=== PATIENT | male | born 1955 | race Two or more races ===

== ENCOUNTER → 2020-11-13 | Outpatient (CLI) | payer MEDICARE | END | disposition home or self-care (01) | LOC: LAB 07:58 → LAB SHORT 07:58 | DX: D04.5 Carcinoma in situ of skin of trunk (principal); D04.39 Carcinoma in situ of skin of other parts of face; L81.4 Other melanin hyperpigmentation | CPT/HCPCS: 88305 ==

== ENCOUNTER → 2021-05-14 | Outpatient (CLI) | payer MEDICARE | END | disposition home or self-care (01) | LOC: LAB 14:40 → LAB SHORT 14:40 | DX: C44.519 Basal cell carcinoma of skin of other part of trunk (principal) | CPT/HCPCS: 88305 ==

== ENCOUNTER → 2022-05-14 | Outpatient (CLI) | payer MEDICARE | END | disposition home or self-care (01) | LOC: PLD 12:22 → LAB SHORT 12:22 | DX: D04.5 Carcinoma in situ of skin of trunk (principal) | CPT/HCPCS: 88305 ==

== ENCOUNTER 2022-05-22 10:50 | Day surgery (SDC) | payer MEDICARE ==
[~2022-05-22] VITALS: Ht 175.3 cm; Wt 89.7 kg
[2022-05-22] MEDS ORDERED: LOSA25 (10:55)
[2022-05-22] MEDS ORDERED: PANT20 (10:56)
== END 2022-05-22 12:10 | disposition home or self-care (01) ==
LOC: ORSCSDS 10:50
PROVIDERS: Student in an Organized Health Care Education/Training Program
PROC: 0D758ZZ Dilation of Esophagus, Via Natural or Artificial Opening Endoscopic (ICD-10-PCS; principal; 2022-05-22 12:00)
PROC: 0DB58ZX Excision of Esophagus, Via Natural or Artificial Opening Endoscopic, Diagnostic (ICD-10-PCS; principal; 2022-05-22 12:00)
DX: R13.10 Dysphagia, unspecified (principal); K21.9 Gastro-esophageal reflux disease without esophagitis; K44.9 Diaphragmatic hernia without obstruction or gangrene; K22.2 Esophageal obstruction; I10 Essential (primary) hypertension; G47.33 Obstructive sleep apnea (adult) (pediatric); Z79.899 Other long term (current) drug therapy
CPT/HCPCS: 88305; C1726; J2704; J7120

== ENCOUNTER → 2022-07-30 | Outpatient (CLI) | payer MEDICARE ==
[~2022-07-30] MED LIST: LOSA25; PANT20
== END ==
LOC: LAB SHORT 11:09 → PLD 11:09
DX: D48.5 Neoplasm of uncertain behavior of skin (principal)
CPT/HCPCS: 88305

== ENCOUNTER → 2022-12-31 | Outpatient (CLI) | payer MEDICARE | LOC: PLD 11:21 → LAB SHORT 11:21 | DX: C44.329 Squamous cell carcinoma of skin of other parts of face (principal) | CPT/HCPCS: 88305 ==